=== PATIENT | female | born 2000 | race Caucasian/White ===

== ENCOUNTER 2020-08-17 17:53 | Inpatient (IN) ==
[2020-08-17 18:41] LABS: Appearance Urine Cloudy (Clear); Bacteria Urine Automated 1+ (Negative); Bilirubin Urine Negative (Negative); Blood Urine Negative (Negative); Color Urine Dark Yellow; Epithelial Cell Urine Auto >30 /lpf (0-5); Glucose Urine UA Negative (Negative); Ketones Urine Trace (Negative); Leukocyte Esterase Urine Trace (Negative); Nitrite Urine Negative (Negative); Protein Urine Negative (Negative); RBC Urine Automated 0-4 /hpf (0-4); Specific Gravity Urine 1.033 (1.000-1.030); Urobilinogen Urine Negative (Negative)
--- NOTE | 2020-08-17 18:44 | Emergency Department Note ---
History of Present Illness General Chief complaint: Mental Health Evaluation Stated complaint: SUICIDAL THOUGHTS/INTENTIONS-WEAKNESS Time Seen by Provider: 08/17/20 18:24 Source: patient Limitations: no limitations History of Present Illness Provider complaint: Mental health evaluation Onset (ago): unknown Maximum Pain Intensity: 4 This is a 20-year-old female who presents for mental health evaluation. Patient mitts to history of bipolar disorder and recent increased depression. Patient does have a psychiatrist that she sees routinely. Patient states 3 weeks ago she stopped all of her routine medications abruptly. She did not consult her psychiatrist for this nor did she do any tapering. She said she felt terrible, and then discussed with her psychiatrist her symptoms. She just restarted Lamictal at an initial dose 2 days ago. Patient states every spring around this time she develops increased depression and suicidal ideation. Patient states she does have a prior history of an attempt, and states that in high school she also used to self-harm with cutting. Patient has not done that recently. Patient has had suicidal ideation again and states she thinks about running off the road or running into traffic when she is driving or jumping in front of traffic. Patient denies any other recent illness or exposure to coronavirus. Pt seen during a time of high acuity and national emergency pandemic while wearing PPE. Home Medications Medication Instructions Recorded Confirmed Type lamotrigine 25 mg PO DAILY 08/17/20 08/17/20 History Allergies Allergy/AdvReac Type Severity Reaction Status Date / Time No Known Allergies Allergy Unverified 08/21/18 13:07 Past Med/Surg History Medical History Asthma Depression Social History Smoking Status: Current some day smoker Preferred Language: Nauruan Communication Ability: Effective Maxillofacial Pathology Required: No Beliefs That Will Affect Care: None Feels Safe at Home: Yes Assistive Devices: Contacts and Glasses Review of Systems See HPI for pertinent positives & negatives. and A total of 10 systems reviewed and were otherwise negative Physical Exam Vital Signs Vital Signs - 24 hr 08/17/20 17:56 08/17/20 22:19 Temperature 37.4 C 38.1 C H Temperature Source Temporal Artery Scan Oral Pulse Rate 95 H Pulse Rate [Left Finger] 67 Pulse Rhythm [Left Finger] Regular Pulse Strength [Left Finger] Normal Respiratory Rate 18 18 Respiratory Effort / Characteristics Non-Labored Respiratory Depth Normal Blood Pressure 116/74 Blood Pressure Mean 88 Pulse Oximetry 94 97 Oxygen Delivery Method Room Air Room Air Sepsis Recent Fever Within 48 Hours No Sepsis New/Unexplained Change in Mental Status N/A Sepsis Action Taken by Nursing No Action Required GENERAL: alert, well appearing, well nourished, no distress, non-toxic EYE EXAM: normal conjunctiva, PERRL and EOM's grossly intact OROPHARYNX: no exudate, no erythema, lips, buccal mucosa, and tongue normal and mucous membranes are moist NECK: supple, no nuchal rigidity, no adenopathy, non-tender LUNGS: Clear to auscultation. Normal chest wall mechanics, no w/r/r HEART: no murmurs, S1 normal and S2 normal ABDOMEN: abdomen soft, non-tender, normo-active bowel sounds, no masses, no rebound or guarding. BACK: Back is symmetrical on inspection and there is no deformity, no midline tenderness, no CVA tenderness. SKIN: no rashes and no bruising UPPER EXTREMITIES: upper extremities are grossly normal. FROM, nml pulses b/l. LOWER EXTREMITIES: No pitting edema. FROM, nml pulses b/l. NEURO EXAM: Normal sensorium, cranial nerves II-XII grossly intact, normal speech, no gross weakness of arms, no gross weakness of legs. Gross sensation intact. Course Course 2239: Patient accepted to [facility] Administered Medications Aripiprazole (Aripiprazole 5 Mg Tab) 2.5 mg PO [facility] Stop: 09/17/20 13:39 Last Admin: 08/19/20 08:52 Dose: 2.5 mg Documented by: [id number] Admin: 08/18/20 14:30 Dose: 2.5 mg Documented by: [id number] Lamotrigine (Lamotrigine 25 Mg Tab) [address] [facility] [place] Stop: 09/17/20 08:59 Last Admin: 08/19/20 08:52 Dose: 25 mg Documented by: [id number] Admin: 08/18/20 08:31 Dose: 25 mg Documented by: [id number] Medical Decision Making Differential Diagnosis Differential diagnoses considered include mood disorder, infection, hypoglycemia, electrolyte abnormalities, cardiac sources, intracerebral event, toxicologic, neurologic, as well as others. Medical Records Attestation: I reviewed the patient's medical records. Home Medications Current Medication List: was personally reviewed by me Laboratory Data Attestation: I reviewed the patient's lab results. Result diagrams: 08/17/20 19:14 08/17/20 19:14 Lab Results 08/17/20 08/17/20 08/17/20 Range/Units 18:19 18:19 19:14 WBC 7.19 (4.8-10.8) K/uL RBC 3.96 L (4.2-5.4) M/uL Hgb 12.4 (12.0-16.0) g/dL Hct 37.7 (37-47) % MCV 95.2 (80-100) fL MCH 31.3 (25-34) pg MCHC 32.9 (32-36) g/dL RDW Std Deviation 47.8 H (36.4-46.3) fL RDW Coeff of Elisha 13.7 (11.5-14.5) % Plt Count 214 (130-400) K/uL MPV 11.2 H (7.4-10.4) fL Immature Gran % (Auto) 0.1 % Neut % (Auto) 50.6 % Lymph % (Auto) 37.4 % [place] % (Auto) 7.6 % Eos % (Auto) 3.9 % Baso % (Auto) 0.4 % Neut # (Auto) 3.63 (1.4-6.5) K/uL Lymph # (Auto) 2.69 (1.2-3.4) K/uL [place] # (Auto) 0.55 (0.11-0.59) K/uL Eos # (Auto) 0.28 (0-0.5) K/uL Baso # (Auto) 0.03 (0-0.2) K/uL Immature Gran # (Auto) 0.01 (0.00-0.02) K/uL Sodium (136-145) mmol/L Potassium (3.5-5.1) mmol/L Chloride (98-107) mmol/L Carbon Dioxide (21-32) mmol/L Anion Gap (3-11) BUN (7-18) mg/dl Creatinine (0.6-1.2) mg/dl Est Cr Clr Drug Dosing ml/min Est GFR ( Amer) Est GFR (Non-Af Amer) BUN/Creatinine Ratio (10-20) Glucose (70-99) mg/dl Calcium (8.5-10.1) mg/dl Total Bilirubin (0.2-1) mg/dl AST (15-37) U/L ALT (12-78) U/L Alkaline Phosphatase (45-117) U/L Total Protein (6.4-8.2) gm/dl Albumin (3.4-5.0) gm/dl Globulin (2.5-4.0) gm/dl Albumin/Globulin Ratio (0.9-2) TSH (0.300-4.500) uIu/ml Urine Color Dark Yellow Urine Appearance Cloudy A (Clear) Urine pH 6.0 (4.5-7.5) Ur Specific [place] 1.033 H (1.000-1.030) Urine Protein Negative (Negative) Urine Glucose (UA) Negative (Negative) Urine Ketones Trace H (Negative) Urine Blood Negative (Negative) Urine Nitrite Negative (Negative) Urine Bilirubin Negative (Negative) Urine Urobilinogen Negative (Negative) Ur Leukocyte Esterase Trace H (Negative) Urine WBC (Auto) 10-30 H (0-5) /hpf Urine RBC (Auto) 0-4 (0-4) /hpf U Hyaline Cast (Auto) 0 (0-5) /lpf U Epithel Cells (Auto) >30 H (0-5) /lpf Urine Bacteria (Auto) 1+ H (Negative) Urine Crystals Calcium Oxalate A (None Prsent) Calcium Oxalate Crystal Present A (None Prsent) Salicylates (2.8-20) mg/dl Urine Opiates Screen Pos H (Neg) Ur Methadone, Qual Neg (Neg) Acetaminophen (10-30) ug/ml Urine Barbiturates Neg (Neg) Ur Phencyclidine (PCP) Neg (Neg) U Amphetamin/Meth Scrn Pos H (Neg) MDMA (Ecstasy) Screen Neg (Neg) U Benzodiazepines Scrn Neg (Neg) Ur Cocaine Metabolite Neg (Neg) U Marijuana (THC) Screen Pos H (Neg) Ethyl Alcohol mg/dL (0-3) mg/dl SARS-CoV-2, RNA, NAAT (NEGATIVE) 08/17/20 08/17/20 08/17/20 Range/Units 19:14 19:14 19:14 WBC (4.8-10.8) K/uL RBC (4.2-5.4) M/uL Hgb (12.0-16.0) g/dL Hct (37-47) % MCV (80-100) fL MCH (25-34) pg MCHC (32-36) g/dL RDW Std Deviation (36.4-46.3) fL RDW Coeff of Elisha (11.5-14.5) % Plt Count (130-400) K/uL MPV (7.4-10.4) fL Immature Gran % (Auto) % Neut % (Auto) % Lymph % (Auto) % [place] % (Auto) % Eos % (Auto) % Baso % (Auto) % Neut # (Auto) (1.4-6.5) K/uL Lymph # (Auto) (1.2-3.4) K/uL [place] # (Auto) (0.11-0.59) K/uL Eos # (Auto) (0-0.5) K/uL Baso # (Auto) (0-0.2) K/uL Immature Gran # (Auto) (0.00-0.02) K/uL Sodium 143 (136-145) mmol/L Potassium 3.6 (3.5-5.1) mmol/L Chloride 108 H (98-107) mmol/L Carbon Dioxide 28 (21-32) mmol/L Anion Gap 7.0 (3-11) BUN 14 (7-18) mg/dl Creatinine 0.88 (0.6-1.2) mg/dl Est Cr Clr Drug Dosing 91.7 ml/min Est GFR ( Amer) 108.1 Est GFR (Non-Af Amer) 93.3 BUN/Creatinine Ratio 16.3 (10-20) Glucose 83 (70-99) mg/dl Calcium 8.8 (8.5-10.1) mg/dl Total Bilirubin 0.5 (0.2-1) mg/dl AST 22 (15-37) U/L ALT 18 (12-78) U/L Alkaline Phosphatase 64 (45-117) U/L Total Protein 6.6 (6.4-8.2) gm/dl Albumin 3.6 (3.4-5.0) gm/dl Globulin 3.0 (2.5-4.0) gm/dl Albumin/Globulin Ratio 1.2 (0.9-2) TSH 0.869 (0.300-4.500) uIu/ml Urine Color Urine Appearance (Clear) Urine pH (4.5-7.5) Ur Specific [place] (1.000-1.030) Urine Protein (Negative) Urine Glucose (UA) (Negative) Urine Ketones (Negative) Urine Blood (Negative) Urine Nitrite (Negative) Urine Bilirubin (Negative) Urine Urobilinogen (Negative) Ur Leukocyte Esterase (Negative) Urine WBC (Auto) (0-5) /hpf Urine RBC (Auto) (0-4) /hpf U Hyaline Cast (Auto) (0-5) /lpf U Epithel Cells (Auto) (0-5) /lpf Urine Bacteria (Auto) (Negative) Urine Crystals (None Prsent) Calcium Oxalate Crystal (None Prsent) Salicylates < 1.7 L (2.8-20) mg/dl Urine Opiates Screen (Neg) Ur Methadone, Qual (Neg) Acetaminophen < 2 L (10-30) ug/ml Urine Barbiturates (Neg) Ur Phencyclidine (PCP) (Neg) U Amphetamin/Meth Scrn (Neg) MDMA (Ecstasy) Screen (Neg) U Benzodiazepines Scrn (Neg) Ur Cocaine Metabolite (Neg) U Marijuana (THC) Screen (Neg) Ethyl Alcohol mg/dL < 3.0 (0-3) mg/dl SARS-CoV-2, RNA, NAAT (NEGATIVE) 08/17/20 Range/Units 20:25 WBC (4.8-10.8) K/uL RBC (4.2-5.4) M/uL Hgb (12.0-16.0) g/dL Hct (37-47) % MCV (80-100) fL MCH (25-34) pg MCHC (32-36) g/dL RDW Std Deviation (36.4-46.3) fL RDW Coeff of Eilsha (11.5-14.5) % Plt Count (130-400) K/uL MPV (7.4-10.4) fL Immature Gran % (Auto) % Neut % (Auto) % Lymph % (Auto) % [place] % (Auto) % Eos % (Auto) % Baso % (Auto) % Neut # (Auto) (1.4-6.5) K/uL Lymph # (Auto) (1.2-3.4) K/uL [place] # (Auto) (0.11-0.59) K/uL Eos # (Auto) (0-0.5) K/uL Baso # (Auto) (0-0.2) K/uL Immature Gran # (Auto) (0.00-0.02) K/uL Sodium (136-145) mmol/L Potassium (3.5-5.1) mmol/L Chloride (98-107) mmol/L Carbon Dioxide (21-32) mmol/L Anion Gap (3-11) BUN (7-18) mg/dl Creatinine (0.6-1.2) mg/dl Est Cr Clr Drug Dosing ml/min Est GFR ( Amer) Est GFR (Non-Af Amer) BUN/Creatinine Ratio (10-20) Glucose (70-99) mg/dl Calcium (8.5-10.1) mg/dl Total Bilirubin (0.2-1) mg/dl AST (15-37) U/L ALT (12-78) U/L Alkaline Phosphatase (45-117) U/L Total Protein (6.4-8.2) gm/dl Albumin (3.4-5.0) gm/dl Globulin (2.5-4.0) gm/dl Albumin/Globulin Ratio (0.9-2) TSH (0.300-4.500) uIu/ml Urine Color Urine Appearance (Clear) Urine pH (4.5-7.5) Ur Specific [place] (1.000-1.030) Urine Protein (Negative) Urine Glucose (UA) (Negative) Urine Ketones (Negative) Urine Blood (Negative) Urine Nitrite (Negative) Urine Bilirubin (Negative) Urine Urobilinogen (Negative) Ur Leukocyte Esterase (Negative) Urine WBC (Auto) (0-5) /hpf Urine RBC (Auto) (0-4) /hpf U Hyaline Cast (Auto) (0-5) /lpf U Epithel Cells (Auto) (0-5) /lpf Urine Bacteria (Auto) (Negative) Urine Crystals (None Prsent) Calcium Oxalate Crystal (None Prsent) Salicylates (2.8-20) mg/dl Urine Opiates Screen (Neg) Ur Methadone, Qual (Neg) Acetaminophen (10-30) ug/ml Urine Barbiturates (Neg) Ur Phencyclidine (PCP) (Neg) U Amphetamin/Meth Scrn (Neg) MDMA (Ecstasy) Screen (Neg) U Benzodiazepines Scrn (Neg) Ur Cocaine Metabolite (Neg) U Marijuana (THC) Screen (Neg) Ethyl Alcohol mg/dL (0-3) mg/dl SARS-CoV-2, RNA, NAAT NEGATIVE (NEGATIVE) MDM Narrative This is a 20-year-old female brought in for mental health evaluation. Patient does have a history of mental health problems including bipolar disorder, as well as a history of substance abuse. Patient admitted to discontinuing all of her medications recently, and then after feeling worse followed up with her psychiatrist who helped her reinitiate one of the medications at low dose. Patient with recent increased symptoms and admits to suicidal ideation. Patient seen and evaluated and medically cleared by myself, and then evaluated by case management. Patient referred and was accepted to [facility] for additional inpatient mental health treatment. Patient voluntary at this time, verbalized understanding of all results and was in agreement with plan. Impression & Plan Bipolar disorder, Depression Discharge Plan Visit Data Chief Complaint: Mental Health Evaluation Stated Complaint: SUICIDAL THOUGHTS/INTENTIONS-WEAKNESS ED Provider: Tayler Sellers Discharge Problem: Bipolar disorder, Depression Patient Disposition: Admitted As Inpatient Discharge Instructions Interventions: ED Discharge Assessment Last Done: 08/17/20 22:49 Discharge Problem: Bipolar disorder Qualifiers: Active/Remission status: currently active Current bipolar episode type: depressed Current episode severity: moderate Qualified Code(s): F31.32 - Bipolar disorder, current episode depressed, moderate Depression Qualifiers: Depression Type: unspecified Qualified Code(s): F32.9 - Major depressive disorder, single episode, unspecified
[2020-08-17 19:02] LABS: Amphetamines+Metham, Urine Pos (Neg); Barbiturates, Urine Neg (Neg); Benzodiazepine, Urine Neg (Neg); Cocaine, Urine Neg (Neg); MDMA (Ecstacy), Urine Neg (Neg); Methadone, Urine Neg (Neg); Opiate, Urine Pos (Neg); Phencyclidine, Urine Neg (Neg)
[2020-08-17 19:20] LABS: Calcium Oxalate Crystals Urine Present (None Prsent); Cast Urine Automated 0 /lpf (0-5)
[2020-08-17 19:29] LABS: Basophils # (auto) 0.03 K/uL (0-0.2); Basophils % (auto) 0.4 %; Eosinophils # (auto) 0.28 K/uL (0-0.5); Eosinophils % (auto) 3.9 %; Hematocrit (blood only) 37.7 % (37-47); Hemoglobin 12.4 g/dL (12.0-16.0); Immature Granulocytes # (auto) 0.01 K/uL (0.00-0.02); Immature Granulocytes % (auto) 0.1 %; Lymphocytes # (auto) 2.69 K/uL (1.2-3.4); Lymphocytes % (auto) 37.4 %; Mean Corpuscular Hemoglobin 31.3 pg (25-34); Mean Corpuscular Hgb Conc 32.9 g/dL (32-36); Mean Corpuscular Volume 95.2 fL (80-100); Mean Platelet Volume 11.2 fL (7.4-10.4); Monocytes # (auto) 0.55 K/uL (0.11-0.59); Monocytes % (auto) 7.6 %; Neutrophils # (auto) 3.63 K/uL (1.4-6.5); Neutrophils % (auto) 50.6 %; Platelet Count 214 K/uL (130-400); RDW Coefficient of Variation 13.7 % (11.5-14.5); RDW Standard Deviation 47.8 fL (36.4-46.3); Red Blood Count 3.96 M/uL (4.2-5.4); White Blood Count 7.19 K/uL (4.8-10.8)
[2020-08-17 19:51] LABS: Albumin Level 3.6 gm/dl (3.4-5.0); BUN Creatinine Ratio 16.3 (10-20); Calcium 8.8 mg/dl (8.5-10.1); Creatinine Clr Calc Pharmacy 91.7 ml/min; Est GFR (African American) 108.1; Est GFR (Non-African American) 93.3; Potassium 3.6 mmol/L (3.5-5.1)
[2020-08-17 20:02] LABS: Acetaminophen < 2 ug/ml (10-30); Albumin Globulin Ratio 1.2 (0.9-2); Bilirubin,Total 0.5 mg/dl (0.2-1); Salicylate < 1.7 mg/dl (2.8-20); Thyroid Stimulating Hormone 0.869 uIu/ml (0.300-4.500); Total Protein 6.6 gm/dl (6.4-8.2)
[2020-08-17] MEDS ORDERED: hydrOXYzine HCl 25 MG TAB PO PRN ×4 (22:45→22:53)
[2020-08-17] MEDS ORDERED: ACETAMINOPHEN 325 MG TAB PO PRN ×2 (22:45→22:53)
[2020-08-17] MEDS ORDERED: MAGNESIUM HYDROXIDE SUSP 30 ML UDC PO PRN ×2 (22:45→22:53)
[2020-08-17] MEDS ORDERED: ALUMINUM/MAGNESIUM SUSP 30 ML UDC PO PRN ×2 (22:45→22:53)
[2020-08-17] MEDS ORDERED: SODIUM CHLORIDE 0.65% NA SOLN 45 ML (OCEAN) PRN ×2 (22:45→22:53)
[2020-08-17] MEDS ORDERED: BISMUTH SUBSALICYLATE LIQD 236 ML PO PRN ×2 (22:45→22:53)
[2020-08-18] MEDS: lamoTRIgine 25 MG TAB PO SCH (08:31)
--- NOTE | 2020-08-18 13:47 | History & Physical ---
Date of Service August 18, 2020 Impression / Recommendations Impression 20 yo female with a history of intermittent SI both while depressed and hypomanic restarting Lamictal but ongoing significant MJ use and binge drinking. (1) Bipolar II disorder with seasonal pattern: The patient was admitted to the [facility] ([facility]) on q15 min checks (behavioral with suicide precautions) for safety. The patient will participate in group, recreational, and milieu therapies and will be offered additional individual and family sessions as clinically appropriate. Risks/benefits/alternatives reviewed re: Abilify for treatment of depression and mood stabilization until therapeutic on Lamictal. She is well aware of risk of Zev's Miguel reaction with Lamictal. Discussion around Abilify included but was not limited to risks of metabolic abnormalities and TD. Fasting metabolic labs in am. (2) Substance abuse, binge pattern: patient is actively suicidal and not able to engage in meaningful recovery discussion at this time. I do believe likely mood driven use and likely to decrease with resuming mood stabilizing medication. she denies use of opiates, ?lamictal false positive--quantitative pending. (3) Attention deficit disorder of adult: reviewed that will not prescribe Adderall XR here as depression is focus of treatment. She does report dx was based on neuropsych testing and GINA for [facility] to obtain records. Risk Factors Assessment Do You Have Access To A Gun?: No Protective Factors Assessment Employed: No Psychiatric History Identifying Data BOLA BASS is a 20-year-old F, [employer] senior, has a history of inpatient stay 2018, and was admitted on 08/17/20 22:48 on a 201 voluntary commitment for SI with plan. Chief Complaint "I'm always suicidal, whether I'm low or high, I just wonder if it's all worth it". History of Present Illness Patient reports "i haven't been doing anything" including taking her medication. She is behind in classes and may have to withdraw. She has been using MJ and alcohol, "more than usual and not just when I'm having fun". She reports any suicidal thoughts are chronic, but more persistent for few days up to admission. Suicidal plan included wrecking her car or walking in front of a care. She had just seen outpatient provider on 08/15 to resume Lamictal but "I know that's not going to work for awhile". Bola reports existential angst about meaning of life in general and that "none of us are really supposed to be here when the world is such a terrible place." She realizes "I read too much and go to a dark place" referring to material for her psych and sociology degrees. Sleep and appetite "haven't been great" and "I can't focus" even with addition of Adderall XR in escalating doses to 15 mg "so I stopped it too." "July is just a bad month for me" and historically she was hospitalized at in July 2018. At that point she was a sophomore and experiencing low mood alternating with periods of not needing sleep, more reckless behavior. Bola states that "antidepressants have never helped". She worries she is becoming too dependent on friends as she has asked someone to stay with her "constantly" for past few weeks so "I wouldn't do anything." Past Psychiatric History Current Psychiatric Diagnosis: bipolar disorder Outpatient Services: [facility] (meds only) Previous Psych Admissions: 07/2018 [facility] Do You Have Access To A Gun?: No History of Previous Suicide Attempt: No Past Medication Trials: Zoloft, Wellbutrin, Adderall XR, Lamictal up to 200 mg (with benefit) Past Head Trauma/Neuro History History of Concussion/Seizure: No Allergies Allergy/AdvReac Type Severity Reaction Status Date / Time No Known Allergies Allergy Unverified 08/21/18 13:07 Home Medications Medication Instructions Recorded Confirmed Type lamotrigine 25 mg PO DAILY 08/17/20 08/17/20 History Family History Family History of: Bipolar (she believes but not clear formal/treated) Alcohol History Hx of Alcohol Use Over the Past 12 Months: Yes (3x/week, 5-6 drinks) AUDIT Total Score: 6 Smoking Use Have You Smoked or Used Tobacco Products in the Last 30 Days: Yes tobacco type: cigarettes and e-cigarettes Smoking Status: Current some day smoker Substance History Hx of Prescription Med Misuse Over the Past 12 Months: No Hx of Over the Counter Med Misuse Over the Past 12 Months: No Hx of Inhalent Misuse Over the Past 12 Months: No Hx of Organic Substance Use Over the Past 12 Months: Yes (frequent marijuana use) Hx of Illegal Substances/Street Drug Use Over Past 12 Months: No Problems as a Result of Past Substance Use: None Identified Personal History Living Arrangements: Apartment Born In: [place] Childhood: 1 bro, 1 sis Highest Grade Completed: Some College (currently senior but not graduating until next year) Employment Status: Student Marital Status: Single Number Of Children: 0 Beliefs That Will Affect Care: None Current Legal Problems: No Patient History Medical History Asthma Depression Social History Smoking Status: Current some day smoker Preferred Language: Turkish Communication Ability: Effective Administrator Required: No Beliefs That Will Affect Care: None Feels Safe at Home: Yes Assistive Devices: Contacts and Glasses Review of Systems Review of Systems: All systems reviewed & are unremarkable except as noted in HPI & below Physical Exam Psychiatric: Orientation: alert Apperance: appropriately dressed and appropriately groomed Eye Contact: + fair eye contact Motor Behavior: steady gait and station and no abnormal motor movements Speech: normal rate/rhythm/volume of speech Affect: + depressed affect Mood: + depressed mood Thought Process: linear/logical thought process Thought Content: reality based without delusions Suicidal Thoughts: denies suicidal plan (that should could carry out on unit); + reports suicidal thoughts Homicidal Thoughts: denies homicidal thoughts Hallucinations: no auditory hallucinations and no visual hallucinations Cognition: remote memory grossly intact and attention grossly intact Estimated Intelligence: consistent with education level Insight: + limited insight Judgement: + limited judgement Vital Signs (Past 24 Hours): Last Vital Signs Temp 36.7 C 08/18/20 06:00 Pulse 70 08/18/20 06:51 Resp 15 08/18/20 06:00 BP 105/72 08/18/20 06:51 Pulse Ox 97 08/17/20 23:15 Exam Statement: A physical exam was performed in the ED by Dr. Sellers for the purposes of medical clearance. I accept that physical as correct and adequate for the purposes of the inpatient physical exam. Results & Data ([facility]) Laboratory Results Laboratory Results - last 24 hr 08/17/20 08/17/20 08/17/20 18:19 18:19 18:19 WBC RBC Hgb Hct MCV MCH MCHC RDW Std Deviation RDW Coeff of Elisha Plt Count MPV Immature Gran % (Auto) Neut % (Auto) Lymph % (Auto) Mayes % (Auto) Eos % (Auto) Baso % (Auto) Neut # (Auto) Lymph # (Auto) Mayes # (Auto) Eos # (Auto) Baso # (Auto) Immature Gran # (Auto) Sodium Potassium Chloride Carbon Dioxide Anion Gap BUN Creatinine Est Cr Clr Drug Dosing Est GFR ( Amer) Est GFR (Non-Af Amer) BUN/Creatinine Ratio Glucose Calcium Total Bilirubin AST ALT Alkaline Phosphatase Total Protein Albumin Globulin Albumin/Globulin Ratio TSH Urine Color Dark Yellow Urine Appearance Cloudy A Urine pH 6.0 Ur Specific [place] 1.033 H Urine Protein Negative Urine Glucose (UA) Negative Urine Ketones Trace H Urine Blood Negative Urine Nitrite Negative Urine Bilirubin Negative Urine Urobilinogen Negative Ur Leukocyte Esterase Trace H Urine WBC (Auto) 10-30 H Urine RBC (Auto) 0-4 U Hyaline Cast (Auto) 0 U Epithel Cells (Auto) >30 H Urine Bacteria (Auto) 1+ H Urine Crystals Calcium Oxalate A Calcium Oxalate Crystal Present A POC Ur Test Salicylates Urine Opiates Screen Pos H U Codeine Confrm GC/MS Pending Ur Morphine (GC/MS) Pending Ur Hydrocodone (GC/MS) Pending Ur Norhydrocodone Pending Ur Noroxycodone Pending Urine Oxycodone (GC/MS) Pending U Oxymorphone GC/MS Pending Ur Methadone, Qual Neg Ur Hydromorphone (GC/MS) Pending Acetaminophen Urine Barbiturates Neg Ur Phencyclidine (PCP) Neg U Amphetamines Confirm Pending U Amphetamin/Meth Scrn Pos H U Methamphetamin Confrm Pending MDMA (Ecstasy) Screen Neg U Benzodiazepines Scrn Neg Ur Cocaine Metabolite Neg U Marijuana (THC) Screen Pos H U Marijuana THC Carboxy Pending Drug Screen Comment Pending Ethyl Alcohol mg/dL SARS-CoV-2, RNA, NAAT 08/17/20 08/17/20 08/17/20 19:14 19:14 19:14 WBC 7.19 RBC 3.96 L Hgb 12.4 Hct 37.7 MCV 95.2 MCH 31.3 MCHC 32.9 RDW Std Deviation 47.8 H RDW Coeff of Elisha 13.7 Plt Count 214 MPV 11.2 H Immature Gran % (Auto) 0.1 Neut % (Auto) 50.6 Lymph % (Auto) 37.4 Mayes % (Auto) 7.6 Eos % (Auto) 3.9 Baso % (Auto) 0.4 Neut # (Auto) 3.63 Lymph # (Auto) 2.69 Mayes # (Auto) 0.55 Eos # (Auto) 0.28 Baso # (Auto) 0.03 Immature Gran # (Auto) 0.01 Sodium 143 Potassium 3.6 Chloride 108 H Carbon Dioxide 28 Anion Gap 7.0 BUN 14 Creatinine 0.88 Est Cr Clr Drug Dosing 91.7 Est GFR ( Amer) 108.1 Est GFR (Non-Af Amer) 93.3 BUN/Creatinine Ratio 16.3 Glucose 83 Calcium 8.8 Total Bilirubin 0.5 AST 22 ALT 18 Alkaline Phosphatase 64 Total Protein 6.6 Albumin 3.6 Globulin 3.0 Albumin/Globulin Ratio 1.2 TSH 0.869 Urine Color Urine Appearance Urine pH Ur Specific [place] Urine Protein Urine Glucose (UA) Urine Ketones Urine Blood Urine Nitrite Urine Bilirubin Urine Urobilinogen Ur Leukocyte Esterase Urine WBC (Auto) Urine RBC (Auto) U Hyaline Cast (Auto) U Epithel Cells (Auto) Urine Bacteria (Auto) Urine Crystals Calcium Oxalate Crystal POC Ur Test Salicylates < 1.7 L Urine Opiates Screen U Codeine Confrm GC/MS Ur Morphine (GC/MS) Ur Hydrocodone (GC/MS) Ur Norhydrocodone Ur Noroxycodone Urine Oxycodone (GC/MS) U Oxymorphone GC/MS Ur Methadone, Qual Ur Hydromorphone (GC/MS) Acetaminophen < 2 L Urine Barbiturates Ur Phencyclidine (PCP) U Amphetamines Confirm U Amphetamin/Meth Scrn U Methamphetamin Confrm MDMA (Ecstasy) Screen U Benzodiazepines Scrn Ur Cocaine Metabolite U Marijuana (THC) Screen U Marijuana THC Carboxy Drug Screen Comment Ethyl Alcohol mg/dL SARS-CoV-2, RNA, NAAT 08/17/20 08/17/20 08/17/20 19:14 20:25 Unknown WBC RBC Hgb Hct MCV MCH MCHC RDW Std Deviation RDW Coeff of Elisha Plt Count MPV Immature Gran % (Auto) Neut % (Auto) Lymph % (Auto) Mayes % (Auto) Eos % (Auto) Baso % (Auto) Neut # (Auto) Lymph # (Auto) Mayes # (Auto) Eos # (Auto) Baso # (Auto) Immature Gran # (Auto) Sodium Potassium Chloride Carbon Dioxide Anion Gap BUN Creatinine Est Cr Clr Drug Dosing Est GFR ( Amer) Est GFR (Non-Af Amer) BUN/Creatinine Ratio Glucose Calcium Total Bilirubin AST ALT Alkaline Phosphatase Total Protein Albumin Globulin Albumin/Globulin Ratio TSH Urine Color Urine Appearance Urine pH Ur Specific [place] Urine Protein Urine Glucose (UA) Urine Ketones Urine Blood Urine Nitrite Urine Bilirubin Urine Urobilinogen Ur Leukocyte Esterase Urine WBC (Auto) Urine RBC (Auto) U Hyaline Cast (Auto) U Epithel Cells (Auto) Urine Bacteria (Auto) Urine Crystals Calcium Oxalate Crystal POC Ur Test NEG Salicylates Urine Opiates Screen U Codeine Confrm GC/MS Ur Morphine (GC/MS) Ur Hydrocodone (GC/MS) Ur Norhydrocodone Ur Noroxycodone Urine Oxycodone (GC/MS) U Oxymorphone GC/MS Ur Methadone, Qual Ur Hydromorphone (GC/MS) Acetaminophen Urine Barbiturates Ur Phencyclidine (PCP) U Amphetamines Confirm U Amphetamin/Meth Scrn U Methamphetamin Confrm MDMA (Ecstasy) Screen U Benzodiazepines Scrn Ur Cocaine Metabolite U Marijuana (THC) Screen U Marijuana THC Carboxy Drug Screen Comment Ethyl Alcohol mg/dL < 3.0 SARS-CoV-2, RNA, NAAT NEGATIVE Current Inpatient Medications Current Inpatient Medications: Current Inpatient Medications Acetaminophen (Acetaminophen 325 Mg Tab) 650 mg PO Q4H PRN PRN Reason: Headache or Minor Fever Stop: 09/16/20 22:44 Al Hydrox/Mg Hydrox/Simethicone (Aluminum/Magnesium Susp 30 Ml Udc) 30 ml PO Q4H PRN PRN Reason: GI Upset Stop: 09/16/20 22:44 Aripiprazole (Aripiprazole 5 Mg Tab) 2.5 mg PO QAM LOLI Stop: 09/17/20 13:39 Bismuth Subsalicylate (Bismuth Subsalicylate Liqd 236 Ml) 15 ml PO PRN PRN PRN Reason: Loose Stool Stop: 09/16/20 22:44 Hydroxyzine HCl (Hydroxyzine Hcl 25 Mg Tab) 50 mg PO HSZ PRN PRN Reason: Insomnia Stop: 09/16/20 22:44 Hydroxyzine HCl (Hydroxyzine Hcl 25 Mg Tab) 25 mg PO Q4H PRN PRN Reason: Anxiety Stop: 09/16/20 22:44 Lamotrigine (Lamotrigine 25 Mg Tab) 25 mg PO QAM LOLI Stop: 09/17/20 08:59 Last Admin: 08/18/20 08:31 Dose: 25 mg Documented by: Magnesium Hydroxide (Magnesium Hydroxide Susp 30 Ml Udc) 30 ml PO DAILY PRN PRN Reason: Constipation Stop: 09/16/20 22:44 Sodium Chloride (Sodium Chloride 0.65% Na Soln 45 Ml ([place])) 1 - 2 sprays NA PRN PRN PRN Reason: Nasal Dryness/Congestion Stop: 09/16/20 22:44
[2020-08-18] MEDS: ARIPiprazole 5 MG TAB PO SCH (14:30)
[2020-08-19 08:48] LABS: Glucose Fasting 92 mg/dl (70-99)
[2020-08-19] MEDS: ARIPiprazole 5 MG TAB PO SCH (08:52)
[2020-08-19] MEDS: lamoTRIgine 25 MG TAB PO SCH (08:52)
[2020-08-19 08:54] LABS: Chol HDL Ratio 3; Cholesterol 134 mg/dl (0-200); HDL Cholesterol 49 mg/dl; LDL Cholesterol Calculated 68 mg/dl; Triglycerides 87 mg/dl (0-150); VLDL Cholesterol 17 mg/dl
--- NOTE | 2020-08-19 09:55 | Psychiatric Progress Note ---
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 Decompensated after stopping all her medications abruptly several weeks ago, significant MJ use and binge drinking. Inpatient treatment remains medically necessary due to the severity of mood symptoms and risk for suicide if discharged. (1) Bipolar II disorder with seasonal pattern: 08/18 - The patient was admitted to the [facility] ([facility] health [facility]) on q15 min checks (behavioral with suicide precautions) for safety. The patient will participate in group, recreational, and milieu therapies and will be offered additional individual and family sessions as clinically appropriate. Risks/benefits/alternatives reviewed re: Abilify for treatment of depression and mood stabilization until therapeutic on Lamictal. She is well aware of risk of Zev's Miguel reaction with Lamictal. Discussion around Abilify included but was not limited to risks of metabolic abnormalities and TD. Fasting metabolic labs in am. 08/19 -continue lamotrigine titration (25 mg daily started 08/15, so can increase to 50 mg daily on 08/28/2020). Continue aripiprazole 2.5 mg daily. Reviewed fasting lab results with patient, all values within normal limits. -Reviewed outpatient records, and discussed case with her outpatient PA to coordinate care. -Referred to [facility] for dual diagnosis therapy. (2) Substance abuse, binge pattern: 08/18 - patient is actively suicidal and not able to engage in meaningful recovery discussion at this time. I do believe likely mood driven use and likely to decrease with resuming mood stabilizing medication. she denies use of opiates, ?lamictal false positive--quantitative pending. 08/19 - Follow up on UDS confirmatory results, still pending. (3) Attention deficit disorder of adult: reviewed that will not prescribe Adderall XR here as depression is focus of treatment. She does report dx was based on neuropsych testing and GINA for [facility] to obtain records. 08/19 - Reviewed outpatient records which indicate Adderall was discontinued last week as patient reported it wasn't helping and she'd stopped it. Risk Factors Assessment Male: No : Yes Do You Have Access To A Gun?: No Health Problems: No Mental Health Diagnoses: Yes Substance Use Disorders: Yes Previous Attempt: No Family History of Suicide: No Previous Psychiatric Hospitalization: Yes Hopelessness: Yes Smoker: No Protective Factors Assessment Amish Beliefs: No : No Responsible for Young Children: No Employed: No Stable Relationships: Yes Good Rapport with Provider: Yes Interval History Chief Complaint "Pretty good, settling in okay". Review of Systems Sleep Information Total Hours of Sleep: 6.5 Meal Information Percent Meal Consumed - Breakfast: 75 Percent Meal Consumed - Lunch: 75 Percent Meal Consumed - Dinner: 100 Subjective Subjective Patient was seen & assessed and interval progress reviewed with nursing and social work. On my assessment, she reports she isn't sure how her mood is, feels confused about it, "happy and fine, but also hopeless" and depressed. States she feels happy on the surface, "but in the back of my mind, thinking about everything that's bad with the world." She denies anhedonia, is able to "be with people and have a good time, but as soon I'm not with people, I'm not happy." When alone, thoughts focus on "the world is really messed up, the way that like society is handled what has been given to us has ruined us." Exacerbated by [employer] a lot of sociology classes. Worries about money, her own financial situation and also the "concept of money" and the focus on wealth and consumerism. Suicidal thoughts are ongoing, "come in waves," at times feels overwhelmed and hopeless, this morning was thinking treatment "isn't helping" because nothing will have changed when she leaves. Feels safe here, but not outside. Although enjoys her classes (major psychology, minor sociology), they are intense at times. She is not sure what she wants to do for her career, hopes to take some time to travel. She is hoping not to be in the hospital too long, noting she is anxious about missing school. She is not sure if she wants to do a meeting with her friends, she does not want them to feel responsible for her mental health. Spent some time discussing the family meeting and ways that her friends can best support her in recovery. She is tolerating medications well, denies any side effects. Records from outpatient PA at [facility] reviewed: Patient last seen 08/13/2020, at which time she reported stopping all of her medications 2 weeks ago, for no particular reason, "I just got into a funk being lazy and not taking them." She had been prescribed lamotrigine 150 mg daily, bupropion SR 150 mg every morning, and Adderall XR 15 mg every morning. She went a few days without sleep, mood was elevated, energy increased, and increased goal-directed activity (organizing her room). Then mood worsened, with increased irritability, throwing things in her room, and she was struggling to complete schoolwork. She reported daily, passive suicidal thoughts. She thought she had taken too many classes, and had dropped 1-2 classes. Adderall and with bupropion were discontinued, and lamotrigine 25 mg daily was resumed. Therapy was recommended her diagnoses are bipolar disorder type II, generalized anxiety disorder, binge eating disorder, and ADHD inattentive type. Discussed case with Adeline at [facility]: pattern of stopping medications abruptly, then contacting her to resume them when feels worse. Reviewed presenting symptoms, UDS results, medication adjustments,, and plan to refer to [facility] for therapy. Physical Exam Psychiatric Orientation: alert and cooperative Apperance: appropriately dressed, appropriately groomed and appeared stated age Well-nourished well-developed white female appearing her stated age. Dressed in pajama bottoms, sweatshirt, and brightly patterned socks. Shoulderlength, dyed black hair, black framed glasses, nose ring. Seated in no acute distress, with feet tucked under her on the chair. Eye Contact: + fair eye contact Motor Behavior: steady gait and station and no abnormal motor movements Soft speech, slightly slowed rate. Affect: + depressed affect and + constricted affect Mood: + depressed mood Thought Process: goal directed thought process Thought Content: reality based without delusions Focused on negative thoughts Suicidal Thoughts: + reports suicidal thoughts Homicidal Thoughts: denies homicidal thoughts Hallucinations: no auditory hallucinations and no visual hallucinations Cognition: recent memory grossly intact, attention grossly intact and language grossly intact Estimated Intelligence: consistent with education level Insight: + fair insight Judgement: + fair judgement Vital Signs (Past 24 Hours) Last Vital Signs Temp 36.8 C 08/19/20 06:00 Pulse 75 08/19/20 06:51 Resp 18 08/19/20 06:00 BP 109/73 08/19/20 06:51 Pulse Ox 97 08/17/20 23:15 Results & Data ([facility]) Laboratory Results Laboratory Results - last 24 hr 08/19/20 08:06 Fasting Glucose 92 Triglycerides 87 Cholesterol 134 LDL Cholesterol, Calc 68 VLDL Cholesterol, Calc 17 HDL Cholesterol 49 Cholesterol/HDL Ratio 3 Current Inpatient Medications Current Inpatient Medications: Current Inpatient Medications Acetaminophen (Acetaminophen 325 Mg Tab) 650 mg PO Q4H PRN PRN Reason: Headache or Minor Fever Stop: 09/16/20 22:44 Al Hydrox/Mg Hydrox/Simethicone (Aluminum/Magnesium Susp 30 Ml Udc) 30 ml PO Q4H PRN PRN Reason: GI Upset Stop: 09/16/20 22:44 Aripiprazole (Aripiprazole 5 Mg Tab) 2.5 mg PO QAM LOLI Stop: 09/17/20 13:39 Last Admin: 08/19/20 08:52 Dose: 2.5 mg Documented by: Bismuth Subsalicylate (Bismuth Subsalicylate Liqd 236 Ml) 15 ml PO PRN PRN PRN Reason: Loose Stool Stop: 09/16/20 22:44 Hydroxyzine HCl (Hydroxyzine Hcl 25 Mg Tab) 50 mg PO HSZ PRN PRN Reason: Insomnia Stop: 09/16/20 22:44 Hydroxyzine HCl (Hydroxyzine Hcl 25 Mg Tab) 25 mg PO Q4H PRN PRN Reason: Anxiety Stop: 09/16/20 22:44 Lamotrigine (Lamotrigine 25 Mg Tab) 25 mg PO QAM LOLI Stop: 09/17/20 08:59 Last Admin: 08/19/20 08:52 Dose: 25 mg Documented by: Magnesium Hydroxide (Magnesium Hydroxide Susp 30 Ml Udc) 30 ml PO DAILY PRN PRN Reason: Constipation Stop: 09/16/20 22:44 Sodium Chloride (Sodium Chloride 0.65% Na Soln 45 Ml ([place])) 1 - 2 sprays NA PRN PRN PRN Reason: Nasal Dryness/Congestion Stop: 09/16/20 22:44 Mental Health & Subst Abuse Tx Psychiatrist Name of Psychiatrist: Jasen Whatley Psychiatrist's Date of Appointment with Psychiatrist: 09/02/20 Time of Appointment with Psychiatrist: 1:20 p.m. Psychiatric Appointment Comment: [facility], [place] Attendant Sales Name of Attendant Sales: [employer] Phone Number for Attendant Sales: [phone] Post Discharge Appointments Primary Care Physician Name Of Family Doctor: RAJ[facility] Primary [facility] Time of Appointment with PCP: Follow up as needed Provider Appointment Comment: [facility]
[2020-08-20 06:32] LABS: Amphetamine Urine, Confirm 1870 ng/mL (<250); Codeine Urine NEGATIVE ng/mL (<50); Hydrocodone Urine NEGATIVE ng/mL (<50); Hydromor Urine NEGATIVE ng/mL (<50); Marijuana Quant, GCMS Urine 2910 ng/mL (<5); Methamphetamine, Ur Confirm NEGATIVE ng/mL (<250); Morphine Urine 665 ng/mL (<50); Norhydrocodone Conf Ur NEGATIVE ng/mL (<50); Noroxycodone Urine NEGATIVE ng/mL (<50); Oxycodone Urine NEGATIVE ng/mL (<50); Oxymorph Urine NEGATIVE ng/mL (<50)
[2020-08-20] MEDS: ARIPiprazole 5 MG TAB PO SCH (10:07)
[2020-08-20] MEDS: lamoTRIgine 25 MG TAB PO SCH (10:08)
--- NOTE | 2020-08-20 13:10 | Psychiatric Progress Note ---
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 Decompensated after stopping all her medications abruptly several weeks ago, significant MJ use and binge drinking. Inpatient treatment remains medically necessary due to the severity of mood symptoms and risk for suicide if discharged. (1) Bipolar II disorder with seasonal pattern: 08/18 - The patient was admitted to the [facility] on q15 min checks (behavioral with suicide precautions) for safety. The patient will participate in group, recreational, and milieu therapies and will be offered additional individual and family sessions as clinically appropriate. Risks/benefits/alternatives reviewed re: Abilify for treatment of depression and mood stabilization until therapeutic on Lamictal. She is well aware of risk of Zev's Miguel reaction with Lamictal. Discussion around Abilify included but was not limited to risks of metabolic abnormalities and TD. Fasting metabolic labs in am. 08/19 -continue lamotrigine titration (25 mg daily started 08/15, so can increase to 50 mg daily on 08/28/2020). Continue aripiprazole 2.5 mg daily. Reviewed fasting lab results with patient, all values within normal limits. -Reviewed outpatient records, and discussed case with her outpatient PA to coordinate care. -Referred to [place] for dual diagnosis therapy. 08/20 - Continue current medication regimen with standard titration of lamotrigine as outlined above. - Reports some improvement in mood overall, but admits she is worried that "nothing will have changed" - Pt admits that active SI is improved, but she still feels as though there is "no point" - still referencing having poor motivation as she does not imagine be ing around to live much more of her life. Pt admits she does not feel she would be ready for discharge for a few more days, as she does not feel she could contract for safety based on how she is currently feeling. - Discussed behavioral activation, encouraging her to work on adjustments to her schedule/routine that might help with motivation, and other similar topics. (2) Substance abuse, binge pattern: 08/18 - patient is actively suicidal and not able to engage in meaningful recovery discussion at this time. I do believe likely mood driven use and likely to decrease with resuming mood stabilizing medication. she denies use of opiates, ?lamictal false positive--quantitative pending. 08/19 - Follow up on UDS confirmatory results, still pending. 08/20 - Opiate confirmatory screening positive for morphine - patient remains adamant that she did not knowingly consume heroin, morphine, codeine, etc. - Reviewed the significant risks associated with substance use, as well as negative impact it is likely having on her mood and concentration. - [facility] for dual diagnosis therapy as mentioned above (3) Attention deficit disorder of adult: reviewed that will not prescribe Adderall XR here as depression is focus of treatment. She does report dx was based on neuropsych testing and [facility]INA for [place] to obtain records. 08/19 - Reviewed outpatient records which indicate Adderall was discontinued last week as patient reported it wasn't helping and she'd stopped it. 08/20 - Reviewed with patient that recommendation from outpatient provider had been for discontinuation of Adderall - informed this will be our discharge recommendation as well. Risk Factors Assessment Male: No : Yes Do You Have Access To A Gun?: No Health Problems: No Mental Health Diagnoses: Yes Substance Use Disorders: Yes Previous Attempt: No Family History of Suicide: No Previous Psychiatric Hospitalization: Yes Hopelessness: Yes Smoker: No Protective Factors Assessment Denominational Beliefs: No : No Responsible for Young Children: No Employed: No Stable Relationships: Yes Good Rapport with Provider: Yes Interval History Identifying Information BOLA BASS is a 20-year-old , [employer] senior, has a history of inpatient stay 2018, and was admitted on 08/17/20 22:48 on a 201 voluntary commitment for SI with plan. Chief Complaint "Um, pretty good." Review of Systems Notes Constitutional: denied Cardiovascular: denied Respiratory: denied Gastrointestinal: denied Neurological: denied Psychiatric: denies symptoms other than stated above Total of at least 10 systems reviewed, pertinent positives as above and in HPI. Sleep Information Total Hours of Sleep: 6.5 Sleep Comments: pt on q-15 minute checks Meal Information Percent Meal Consumed - Breakfast: 50 Percent Meal Consumed - Lunch: 25 Percent Meal Consumed - Dinner: 75 Subjective Subjective Patient was seen & assessed and interval progress reviewed with treatment team. Staff report the patient has been doing well with her peers. She walks laps frequently and rated her mood a 7/10 and "accomplished" last evening, after reaching her goal of walking so many laps in a day. Pt reported to staff that her suicidality was somewhat improved but not resolved. Pt was seen today to assess progress since admission. Pt states she is feeling "pretty good" today. She admits to feeling "more motivated" and states her negative thinking is "definitely better, not as many thoughts to hurt myself." Pt does admit, however, that she is still experiencing passive thoughts of "there's still no point." Pt admits that she is worried that if she were to be discharged her poor motivation would quickly return. She states "I think I get stuck on not doing things that I don't want to do. I'm just not motivated for classes and things." When asked why she feels this is the case, the patient stated "I just feel like I don't plan on being around much longer anyway, so what's the point." Pt did clarify that she is implying suicide when she states this. Although she does not have any current active SI, she admits that she does not feel she would be safe to return home with the way she is currently feeling. We discussed her frustrations with her majors and poor academic performance. Pt states her dream would be to travel; however, she also states she is not motivated to work jobs that would allow her to be able to afford this. We discussed the idea of "nothing changes if nothing changes" and motivation interviewing was used to explore the areas of the patient's life that she is genuinely interested in working on. Pt admits she at least wishes to finish her undergraduate degree, and then plans to move to [place] for a period of time. She admits she is not certain about grad school, and we discussed that not everyone ultimately pursues careers related to their degrees. She did honestly admit that she is not motivated to completely eliminate the use of marijuana and alcohol, but does feel it would be appropriate to limit her use to the weekends. Pt was updated about her UDS being positive for morphine specifically, and patient remains adamant that she did not knowingly use any substance aside from marijuana - but did seem genuinely concerned about this result and the potential that her marijuana could have been laced with other substances. Pt is still considering who she thinks may be helpful to include in a support meeting. She denied other needs or concerns today. Physical Exam Psychiatric Orientation: alert, oriented x 3 and cooperative Apperance: appropriately dressed, + disheveled (appearing somewhat unkempt, oversized clothing) and appeared stated age Eye Contact: good eye contact Motor Behavior: steady gait and station and no abnormal motor movements Speech: normal rate/rhythm/volume of speech Affect: + depressed affect, + anxious affect and + tearful affect Mood: no depressed mood ("pretty good") Thought Process: goal directed thought process Thought Content: + cognitive distortions, + hopelessness and + self deprecation Suicidal Thoughts: + reports suicidal thoughts denies active SI, but admits she still feels there is "no point" - pt continues to report feeling as though she doesn't need to be motivated to do things as she does not picture herself being around to live much more of her life Homicidal Thoughts: denies homicidal thoughts Hallucinations: no auditory hallucinations and no visual hallucinations Cognition: attention grossly intact and language grossly intact Estimated Intelligence: consistent with education level Insight: + fair insight Judgement: + fair judgement Vital Signs (Past 24 Hours) Last Vital Signs Temp 36.4 C L 08/20/20 06:47 Pulse 74 08/20/20 06:48 Resp 16 08/20/20 06:47 BP 103/71 08/20/20 06:48 Pulse Ox 97 08/17/20 23:15 Results & Data ([facility]) Laboratory Results Laboratory Results - last 24 hr 08/17/20 18:19 U Codeine Confrm GC/MS NEGATIVE Ur Morphine (GC/MS) 665 H Ur Hydrocodone (GC/MS) NEGATIVE Ur Norhydrocodone NEGATIVE Ur Noroxycodone NEGATIVE Urine Oxycodone (GC/MS) NEGATIVE U Oxymorphone GC/MS NEGATIVE Ur Hydromorphone (GC/MS) NEGATIVE U Amphetamines Confirm 1870 H U Methamphetamin Confrm NEGATIVE U Marijuana THC Carboxy 2910 H Drug Screen Comment SEE NOTE Current Inpatient Medications Current Inpatient Medications: Current Inpatient Medications Acetaminophen (Acetaminophen 325 Mg Tab) 650 mg PO Q4H PRN PRN Reason: Headache or Minor Fever Stop: 09/16/20 22:44 Al Hydrox/Mg Hydrox/Simethicone (Aluminum/Magnesium Susp 30 Ml Udc) 30 ml PO Q4H PRN PRN Reason: GI Upset Stop: 09/16/20 22:44 Aripiprazole (Aripiprazole 5 Mg Tab) 2.5 mg PO QAM LOLI Stop: 09/17/20 13:39 Last Admin: 08/20/20 10:07 Dose: 2.5 mg Documented by: Bismuth Subsalicylate (Bismuth Subsalicylate Liqd 236 Ml) 15 ml PO PRN PRN PRN Reason: Loose Stool Stop: 09/16/20 22:44 Hydroxyzine HCl (Hydroxyzine Hcl 25 Mg Tab) 50 mg PO HSZ PRN PRN Reason: Insomnia Stop: 09/16/20 22:44 Hydroxyzine HCl (Hydroxyzine Hcl 25 Mg Tab) 25 mg PO Q4H PRN PRN Reason: Anxiety Stop: 09/16/20 22:44 Lamotrigine (Lamotrigine 25 Mg Tab) 25 mg PO QAM LOLI Stop: 09/17/20 08:59 Last Admin: 08/20/20 10:08 Dose: 25 mg Documented by: Magnesium Hydroxide (Magnesium Hydroxide Susp 30 Ml Udc) 30 ml PO DAILY PRN PRN Reason: Constipation Stop: 09/16/20 22:44 Sodium Chloride (Sodium Chloride 0.65% Na Soln 45 Ml ([place])) 1 - 2 sprays NA PRN PRN PRN Reason: Nasal Dryness/Congestion Stop: 09/16/20 22:44 Mental Health & Subst Abuse Tx Psychiatrist Name of Psychiatrist: Jasen hWatley Psychiatrist's Date of Appointment with Psychiatrist: 09/02/20 Time of Appointment with Psychiatrist: 1:20 p.m. Psychiatric Appointment Comment: [id number] [facility] Therapist Name of Therapist: [facility] Therapist's Date of Therapist Appointment: 08/26/20 Time of Therapist Appointment: 9:00 a.m. Therapy Appointment Comment: Telehealth Certified Personal Trainer Name of Certified Personal Trainer: Student Care and Advocacy - Carmen Phone Number for Certified Personal Trainer: [phone] Date of Appointment with Certified Personal Trainer: 08/22/20 Time of Appointment with Certified Personal Trainer: 1:30 p.m. Case Management Appointment Comment: Carmen will call you Post Discharge Appointments Primary Care Physician Name Of Family Doctor: [facility] Primary Care Time of Appointment with PCP: Follow up as needed Provider Appointment Comment: [facility] Contact Information Discharge Discharge Address: [place] [address]
[2020-08-21] MEDS: ARIPiprazole 5 MG TAB PO SCH (08:23)
[2020-08-21] MEDS: lamoTRIgine 25 MG TAB PO SCH (08:24)
--- NOTE | 2020-08-21 13:16 | Psychiatric Progress Note ---
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 Decompensated after stopping all her medications abruptly several weeks ago, significant MJ use and binge drinking. Inpatient treatment remains medically necessary due to the severity of mood symptoms and risk for suicide if discharged. (1) Bipolar II disorder with seasonal pattern: 08/18 - The patient was admitted to the [facility]) on q15 min checks (behavioral with suicide precautions) for safety. The patient will participate in group, recreational, and milieu therapies and will be offered additional individual and family sessions as clinically appropriate. Risks/benefits/alternatives reviewed re: Abilify for treatment of depression and mood stabilization until therapeutic on Lamictal. She is well aware of risk of Zev's Miguel reaction with Lamictal. Discussion around Abilify included but was not limited to risks of metabolic abnormalities and TD. Fasting metabolic labs in am. 08/19 -continue lamotrigine titration (25 mg daily started 08/15, so can increase to 50 mg daily on 08/28/2020). Continue aripiprazole 2.5 mg daily. Reviewed fasting lab results with patient, all values within normal limits. -Reviewed outpatient records, and discussed case with her outpatient PA to coordinate care. -Referred to [place] for dual diagnosis therapy. 08/20 - Continue current medication regimen with standard titration of lamotrigine as outlined above. - Reports some improvement in mood overall, but admits she is worried that "nothing will have changed" - Pt admits that active SI is improved, but she still feels as though there is "no point" - still referencing having poor motivation as she does not imagine be ing around to live much more of her life. Pt admits she does not feel she would be ready for discharge for a few more days, as she does not feel she could contract for safety based on how she is currently feeling. - Discussed behavioral activation, encouraging her to work on adjustments to her schedule/routine that might help with motivation, and other similar topics. 08/21 - Continue current treatment plan as above - Pt seeing some positive changes with regard to motivation. - Support meeting tomorrow with friend, whom the patient views as a positive influence with regard to addressing mental health and substance abuse concerns. - She continues to have some SI, but states it is not as severe as when she initially presented. (2) Substance abuse, binge pattern: 08/18 - patient is actively suicidal and not able to engage in meaningful recovery discussion at this time. I do believe likely mood driven use and likely to decrease with resuming mood stabilizing medication. she denies use of opiates, ?lamictal false positive--quantitative pending. 08/19 - Follow up on UDS confirmatory results, still pending. 08/20 - Opiate confirmatory screening positive for morphine - patient remains adamant that she did not knowingly consume heroin, morphine, codeine, etc. - Reviewed the significant risks associated with substance use, as well as neg ative impact it is likely having on her mood and concentration. - [facility] for dual diagnosis therapy as mentioned above (3) Attention deficit disorder of adult: reviewed that will not prescribe Adderall XR here as depression is focus of treatment. She does report dx was based on neuropsych testing and [facility] for [facility] to obtain records. 08/19 - Reviewed outpatient records which indicate Adderall was discontinued last week as patient reported it wasn't helping and she'd stopped it. 08/20 - Reviewed with patient that recommendation from outpatient provider had been for discontinuation of Adderall - informed this will be our discharge recommendation as well. Risk Factors Assessment Male: No : Yes Do You Have Access To A Gun?: No Health Problems: No Mental Health Diagnoses: Yes Substance Use Disorders: Yes Previous Attempt: No Family History of Suicide: No Previous Psychiatric Hospitalization: Yes Hopelessness: Yes Smoker: No Protective Factors Assessment Alevism Beliefs: No : No Responsible for Young Children: No Employed: No Stable Relationships: Yes Good Rapport with Provider: Yes Interval History Identifying Information BOLA BASS is a 20-year-old , [facility], has a history of inpatient stay 2019, and was admitted on 08/17/20 22:48 on a 201 voluntary commitment for SI with plan. Chief Complaint "I don't know...this morning I had a breakdown, sort of." Review of Systems Notes Constitutional: denied Cardiovascular: denied Respiratory: denied Gastrointestinal: denied Neurological: denied Psychiatric: denies symptoms other than stated above Total of at least 10 systems reviewed, pertinent positives as above and in HPI. Sleep Information Total Hours of Sleep: 6.75 Sleep Comments: pt on q-15 minute checks Meal Information Percent Meal Consumed - Breakfast: 70 Percent Meal Consumed - Lunch: 40 Percent Meal Consumed - Dinner: 75 Subjective Subjective Patient was seen & assessed and interval progress reviewed with nursing and social work. Staff report the patient has been participating in groups. She indicates chronic SI, but did feel that yesterday was not as positive of a day. She did agree to scheduling a support meeting with a friend for tomorrow. Pt was seen today to assess progress since admission. Pt states "I don't know...this morning I had a breakdown, sort of." Pt shares that she was dealing with a lot of anxiety related to "what to do with my classes. But I calmed down throughout the day." Pt shares that she had not intended on going to community meeting this morning due to the "breakdown", but states "it was actually during that meeting that I heard some pretty good things from staff. Then I went to group therapy which was also really helpful." Pt states that she shared with the group that "I don't want to be alive", and "I got some really good fee dback." Pt shares that many of the individuals in the milieu are much older than her - "and they were all so worried, like 'honey, you're so young'." Pt shares that she does not think she would have been able to work through her breakdown without the support of this setting, but is happy she was able to put some thought into this. Currently, she is planning to reduce her course load to 2 classes. Pt perceives addressing this stress as a positive thing, stating "I felt like it was something I needed to deal with to get my life back on track. Normally I would have just avoided thinking about it an not cared." We also discussed that she had several opportunities today to continue the "I don't care" mentality, but fought it. We discussed that those times of her saying "yes" to groups and pushing herself beyond her motivation level allowed her to turn a "breakdown" into a positive day. Pt reported surprise to hear it mentioned in this way, but did view that as a positive thing for pushing beyond her motivation outside of the hospital as well. She has a support meeting scheduled with a friend for tomorrow, hoping it will go well as "he has struggled with some of the same things as me. One day he just decided to turn his life around 'I'm going to eat 3 meals a day, I'm going to quit smoking pot, I'm going to quit drinking'. I know it won't happen that quick for me, but I think he can help me get there." Pt admits to SI in the setting of her breakdown this morning, but states "it wasn't as severe as it was before I came in." Pt denied other needs or concerns today. Physical Exam Psychiatric Orientation: alert, oriented x 3 and cooperative Apperance: appropriately dressed (casually dressed, wearing patterned flowing pants and an oversized sweater), appropriately groomed and appeared stated age Eye Contact: + fair eye contact Motor Behavior: steady gait and station and no abnormal motor movements Speech: normal rate/rhythm/volume of speech Affect: + blunted affect Mood: + depressed mood (but has noticed improvement throughout the day) Thought Process: goal directed thought process Thought Content: + cognitive distortions and + hopelessness (but feels this is improving today) Suicidal Thoughts: + reports suicidal thoughts (but states thoughts are less severe) Homicidal Thoughts: denies homicidal thoughts Hallucinations: no auditory hallucinations and no visual hallucinations Cognition: attention grossly intact and language grossly intact Estimated Intelligence: consistent with education level Insight: + fair insight Judgement: + fair judgement Vital Signs (Past 24 Hours) Last Vital Signs Temp 36.6 C 08/21/20 06:00 Pulse 56 L 08/21/20 06:00 Resp 16 08/21/20 06:00 BP 105/71 08/21/20 06:00 Pulse Ox 97 08/17/20 23:15 Results & Data ([facility]) Current Inpatient Medications Current Inpatient Medications: Current Inpatient Medications Acetaminophen (Acetaminophen 325 Mg Tab) 650 mg PO Q4H PRN PRN Reason: Headache or Minor Fever Stop: 09/16/20 22:44 Al Hydrox/Mg Hydrox/Simethicone (Aluminum/Magnesium Susp 30 Ml Udc) 30 ml PO Q4H PRN PRN Reason: GI Upset Stop: 09/16/20 22:44 Aripiprazole (Aripiprazole 5 Mg Tab) 2.5 mg PO QAM LOLI Stop: 09/17/20 13:39 Last Admin: 08/21/20 08:23 Dose: 2.5 mg Documented by: Bismuth Subsalicylate (Bismuth Subsalicylate Liqd 236 Ml) 15 ml PO PRN PRN PRN Reason: Loose Stool Stop: 09/16/20 22:44 Hydroxyzine HCl (Hydroxyzine Hcl 25 Mg Tab) 50 mg PO HSZ PRN PRN Reason: Insomnia Stop: 09/16/20 22:44 Hydroxyzine HCl (Hydroxyzine Hcl 25 Mg Tab) 25 mg PO Q4H PRN PRN Reason: Anxiety Stop: 09/16/20 22:44 Lamotrigine (Lamotrigine 25 Mg Tab) 25 mg PO QAM LOLI Stop: 09/17/20 08:59 Last Admin: 08/21/20 08:24 Dose: 25 mg Documented by: Magnesium Hydroxide (Magnesium Hydroxide Susp 30 Ml Udc) 30 ml PO DAILY PRN PRN Reason: Constipation Stop: 09/16/20 22:44 Sodium Chloride (Sodium Chloride 0.65% Na Soln 45 Ml ([place])) 1 - 2 sprays NA PRN PRN PRN Reason: Nasal Dryness/Congestion Stop: 09/16/20 22:44 Mental Health & Subst Abuse Tx Psychiatrist Name of Psychiatrist: Jasen Whatley Psychiatrist's Date of Appointment with Psychiatrist: 09/02/20 Time of Appointment with Psychiatrist: 1:20 p.m. Psychiatric Appointment Comment: [address] [place] [address] [facility]rap[facility] Therap[facility]'s Date of Therapist Appointment: 08/26/20 Time of Therapist Appointment: 9:00 a.m. Therapy Appointment Comment: Telehealth Sap Bobj Developer Name of Sap Bobj Developer: [facility] - Carmen Phone Number for Sap Bobj Developer: [phone] Date of Appointment with Sap Bobj Developer: 08/22/20 Time of Appointment with Sap Bobj Developer: 1:30 p.m. Case Management Appointment Comment: Carmen will call you Post Discharge Appointments Primary Care Physician Name Of Family Doctor: [facility] Primary Care Time of Appointment with PCP: Follow up as needed Provider Appointment Comment: [facility] Contact Information Discharge Discharge Address: [place] [address]
[2020-08-22] MEDS: ARIPiprazole 5 MG TAB PO SCH (08:06)
[2020-08-22] MEDS: lamoTRIgine 25 MG TAB PO SCH (08:07)
--- NOTE | 2020-08-22 12:00 | Discharge Summary ---
Date of Service August 22, 2020 History of Present Illness Patient reports "i haven't been doing anything" including taking her medication. She is behind in classes and may have to withdraw. She has been using MJ and alcohol, "more than usual and not just when I'm having fun". She reports any suicidal thoughts are chronic, but more persistent for few days up to admission. Suicidal plan included wrecking her car or walking in front of a care. She had just seen outpatient provider on 08/15 to resume Lamictal but "I know that's not going to work for awhile". 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 Sleep and appetite "haven't been great" and "I can't focus" even with addition of Adderall XR in escalating doses to 15 mg "so I stopped it too." "July is just a bad month for me" and historically she was hospitalized at in July 2018. At that point she was a sophomore and experiencing low mood alternating with periods of not needing sleep, more reckless behavior. Eda states that "antidepressants have never helped". She worries she is becoming too dependent on friends as she has asked someone to stay with her "constantly" for past few weeks so "I wouldn't do anything." Physical Exam Psychiatric Orientation: alert, oriented x 3 and cooperative Apperance: appropriately dressed, appropriately groomed and appeared stated age Eye Contact: good eye contact Motor Behavior: steady gait and station Speech: normal rate/rhythm/volume of speech Affect: euthymic affect "Better." Thought Process: goal directed thought process, linear/logical thought process and clear/coherent thought process Thought Content: reality based without delusions Suicidal Thoughts: denies suicidal thoughts Future oriented. Conversant with community safety plan. Homicidal Thoughts: denies homicidal thoughts Hallucinations: no auditory hallucinations, no visual hallucinations and no tactile hallucinations Cognition: recent memory grossly intact, remote memory grossly intact and language grossly intact; + attention not intact Estimated Intelligence: + above average estimated intelligence Insight: + fair insight States, "maybe I can still drink like 2 nights a week, rather than most nights." Judgement: + fair judgement Vital Signs (Past 24 Hours) Last Vital Signs Temp 36.6 C 08/22/20 06:00 Pulse 86 08/22/20 06:37 Resp 16 08/22/20 06:00 BP 110/80 08/22/20 06:37 Pulse Ox 97 08/17/20 23:15 Principal Diagnosis Unspecified bipolar disorder Psychiatric Data During the course of hospitalization the patient was offered various modalities of psychiatric treatment and education. These included individual, group, recreational, and psychiatric chemotherapy. The patient that it be known that she intended to use the current hospitalization more effectively than she had when admitted several years ago and that she wants to try to be more honest and forthcoming about her problems and the issues that may be contributing to those problems. She freely acknowledges that she has been drinking far too much. She explains that, like many college students, she drinks heavily every , Tuesday, and Tuesday nights. But she says that unlike most college student she almost universally drinks to the point of passing out. She also acknowledges that she finds excuses to drink on other nights of the week, and may drink to the point of blacking out on other nights. The patient clearly recognized her drinking as a problem and understands that alcohol is a depressant that can worsen mood disorders and interfere with psychiatric treatment. However, she would make statements such as, "yes, I have to find better ways of coping besides drinking," followed shortly thereafter by, "I am thinking maybe I can just drink 1 or 2 nights a week and it will be okay." She does acknowledge that once she starts drinking it is hard for her to stop, and she also says that she cannot tell the dividing line between feeling that she is not that impaired and blacking out. She the patient does agree to actively participate in a dual diagnosis chemical dependency and psychiatry program as part of her outpatient continue treatment. The patient seems to be more adamant in her decision to not use marijuana, and says that she believes that the use of hydroxyzine here in the hospital has allowed her to sleep "normally" without relying on marijuana. Further, the patient recognizes that nonadherence with her outpatient medications prior to admission certainly contributed to what she refers to as a "downhill spiral." She reiterates that she did not have suicidal intent at the time of admission, but notes that she does have a history of superficial self cutting/self-injurious behaviors that she has used as a coping strategy. During the hospital stay she also worked on developing improved individual coping strategies. Further, the patient worked to develop a coping plan and community safety plan. At discharge, the patient was conversant with this plan and was able to identify warning signs, triggers, things that she could do alone to help herself, things that she could do with her friends to help her self, and steps to take in emergency, such as the development of suicidal ideation with plan or intent. Patient indicates that she feels that she is tolerating her medications well. She was started back on lamotrigine prior to admission at a dose of 25 mg a day and understands that she will need to titrate this medication, gradually, following discharge. Material risks, including but not limited to Caicedo- Miguel syndrome were reviewed with the patient. The patient indicates awareness, and says that she does monitor herself for the development of rashes and knows what the steps she should take should a rash develop. Also, the patient understands that she is taking aripiprazole and is aware of the material risks as well as the anticipated benefits. Her understanding is that aripiprazole in her case is being used as a mood stabilizing "bridge" until her lamotrigine level can be brought back up to a therapeutic dose. The treatment team met today and is in agreement that the patient has received maximum benefit from inpatient psychiatric hospitalization. Her passive thoughts of suicide have resolved, and she reports that her mood has improved substantially. She has learned new coping strategies, and the patient is now future oriented and is fully conversant with her community safety plan. Currently, the treatment team and the patient are in agreement that she may now safely be returned to the community with a plan to continue treatment on an outpatient basis. Day of Discharge Assessment On the day of discharge, the patient was found to be pleasant and fully cooperative with the discharge assessment. She was appropriately dressed and groomed and maintained good eye contact with the undersigned. Her speech was perhaps slightly soft and melting, but delivered at a normal rate and rhythm and was fully spontaneous. She described her mood as "better" and "a lot better," and her affect was observed as being bright and cheerful. The patient's thought processes demonstrated tight associations. Her thought content was devoid of any psychotic features. She freely discussed those factors that she felt had contributed to her recent decompensation, including nonadherence with medications, excessive use of alcohol, and excessive use of marijuana. The patient convincingly reports that she is not having any thoughts of suicide and does not have any passive thoughts. She is future oriented, describes her plan for completing the semester at school, albeit as a "part-time student." She also says that she has had preliminary discussions with her professors and that she has been given feedback that they are eager to be able to work with her around her clinical needs as well as her academic needs. The patient describes a solid support network and has included them in her community safety plan. There is no evidence of any perceptual disturbances. Her insight and judgment would be assessed as good, except for the fact that even at discharge she entertained the idea that she "might" be able to drink "maybe once or twice" a week as long as she "limits [the amounts]," even though she also acknowledges that when she starts drinking she has trouble stopping prior to blackout. Similarly, she says that she "thinks" that she can avoid use of marijuana because she has found that Vistaril (hydroxyzine) is effective in sleep induction and seems to work better than marijuana for sleep maintenance. The patient convincingly denies suicidal ideation. She does note that she has a history of superficial self cutting to relieve stress and anxiety, but reports that she does not have any intent to act on persistent impulses in this direction when under stress. Instead, she says that she plans to execute her safety plan which includes activities that she can do alone for stress management, as well as activities that she can do with friends. She notes that she particularly likes getting together with friends and "cooking." She laughs when she says, "I am not a very good cook, but I like cookingmostly because my friends are good cooks and I definitely like to eat!" There are no report thoughts of causing physical harm to the person or property others. The patient's intelligence is estimated to be above average. Transition of Care Transition Of Care Record: was reviewed with the patient Advance Directives Advance Directives Information Provided: Yes Advance Directives: No Mental Health Advance Directive: No Advance Directives on File: No Living Will: No Power of Junior Qa Analyst: No Advance Directives Reason:: Declines as Mental Health Visit. Risk Factors Assessment Male: No : Yes Do You Have Access To A Gun?: No Health Problems: No Mental Health Diagnoses: Yes Substance Use Disorders: Yes Previous Attempt: No (History of intentional self-injurious behaviors during high school. No cur) Family History of Suicide: No Previous Psychiatric Hospitalization: Yes Hopelessness: Yes Smoker: No Protective Factors Assessment Anabaptist Beliefs: No : No Responsible for Young Children: No Employed: No Stable Relationships: Yes Supportive Family: Yes Good Rapport with Provider: Yes Absence of Any Risk Factors Above: No Tobacco Cessation at Discharge Tobacco Cessation Medication Prescribed at Discharge: Not Applicable/Non-Smoker Antipsychotic Medications Aripiprazole is being prescribed as a mood stabilizer, given the patient's diagnosis of bipolar disorder. Total Time Total Time Spent: Greater Than 30 Minutes Total Time Includes: Examination of the patient, Discharge Planning, Medication Reconciliation and Communication with other providers Discharge Data Lab Results 08/17/20 08/17/20 08/17/20 18:19 18:19 18:19 WBC RBC Hgb Hct MCV MCH MCHC RDW Std Deviation RDW Coeff of Elisha Plt Count MPV Immature Gran % (Auto) Neut % (Auto) Lymph % (Auto) Millard % (Auto) Eos % (Auto) Baso % (Auto) Neut # (Auto) Lymph # (Auto) Millard # (Auto) Eos # (Auto) Baso # (Auto) Immature Gran # (Auto) Sodium Potassium Chloride Carbon Dioxide Anion Gap BUN Creatinine Est Cr Clr Drug Dosing Est GFR ( Amer) Est GFR (Non-Af Amer) BUN/Creatinine Ratio Glucose Fasting Glucose Calcium Total Bilirubin AST ALT Alkaline Phosphatase Total Protein Albumin Globulin Albumin/Globulin Ratio Triglycerides Cholesterol LDL Cholesterol, Calc VLDL Cholesterol, Calc HDL Cholesterol Cholesterol/HDL Ratio TSH Urine Color Dark Yellow Urine Appearance Cloudy A Urine pH 6.0 Ur Specific [place] 1.033 H Urine Protein Negative Urine Glucose (UA) Negative Urine Ketones Trace H Urine Blood Negative Urine Nitrite Negative Urine Bilirubin Negative Urine Urobilinogen Negative Ur Leukocyte Esterase Trace H Urine WBC (Auto) 10-30 H Urine RBC (Auto) 0-4 U Hyaline Cast (Auto) 0 U Epithel Cells (Auto) >30 H Urine Bacteria (Auto) 1+ H Urine Crystals Calcium Oxalate A Calcium Oxalate Crystal Present A POC Ur Test Salicylates Urine Opiates Screen Pos H U Codeine Confrm GC/MS NEGATIVE Ur Morphine (GC/MS) 665 H Ur Hydrocodone (GC/MS) NEGATIVE Ur Norhydrocodone NEGATIVE Ur Noroxycodone NEGATIVE Urine Oxycodone (GC/MS) NEGATIVE U Oxymorphone GC/MS NEGATIVE Ur Methadone, Qual Neg Ur Hydromorphone (GC/MS) NEGATIVE Acetaminophen Urine Barbiturates Neg Ur Phencyclidine (PCP) Neg U Amphetamines Confirm 1870 H U Amphetamin/Meth Scrn Pos H U Methamphetamin Confrm NEGATIVE MDMA (Ecstasy) Screen Neg U Benzodiazepines Scrn Neg Ur Cocaine Metabolite Neg U Marijuana (THC) Screen Pos H U Marijuana THC Carboxy 2910 H Drug Screen Comment SEE NOTE Ethyl Alcohol mg/dL SARS-CoV-2, RNA, NAAT 08/17/20 08/17/20 08/17/20 19:14 19:14 19:14 WBC 7.19 RBC 3.96 L Hgb 12.4 Hct 37.7 MCV 95.2 MCH 31.3 MCHC 32.9 RDW Std Deviation 47.8 H RDW Coeff of Elisha 13.7 Plt Count 214 MPV 11.2 H Immature Gran % (Auto) 0.1 Neut % (Auto) 50.6 Lymph % (Auto) 37.4 Millard % (Auto) 7.6 Eos % (Auto) 3.9 Baso % (Auto) 0.4 Neut # (Auto) 3.63 Lymph # (Auto) 2.69 Millard # (Auto) 0.55 Eos # (Auto) 0.28 Baso # (Auto) 0.03 Immature Gran # (Auto) 0.01 Sodium 143 Potassium 3.6 Chloride 108 H Carbon Dioxide 28 Anion Gap 7.0 BUN 14 Creatinine 0.88 Est Cr Clr Drug Dosing 91.7 Est GFR ( Amer) 108.1 Est GFR (Non-Af Amer) 93.3 BUN/Creatinine Ratio 16.3 Glucose 83 Fasting Glucose Calcium 8.8 Total Bilirubin 0.5 AST 22 ALT 18 Alkaline Phosphatase 64 Total Protein 6.6 Albumin 3.6 Globulin 3.0 Albumin/Globulin Ratio 1.2 Triglycerides Cholesterol LDL Cholesterol, Calc VLDL Cholesterol, Calc HDL Cholesterol Cholesterol/HDL Ratio TSH 0.869 Urine Color Urine Appearance Urine pH Ur Specific [place] Urine Protein Urine Glucose (UA) Urine Ketones Urine Blood Urine Nitrite Urine Bilirubin Urine Urobilinogen Ur Leukocyte Esterase Urine WBC (Auto) Urine RBC (Auto) U Hyaline Cast (Auto) U Epithel Cells (Auto) Urine Bacteria (Auto) Urine Crystals Calcium Oxalate Crystal POC Ur Test Salicylates < 1.7 L Urine Opiates Screen U Codeine Confrm GC/MS Ur Morphine (GC/MS) Ur Hydrocodone (GC/MS) Ur Norhydrocodone Ur Noroxycodone Urine Oxycodone (GC/MS) U Oxymorphone GC/MS Ur Methadone, Qual Ur Hydromorphone (GC/MS) Acetaminophen < 2 L Urine Barbiturates Ur Phencyclidine (PCP) U Amphetamines Confirm U Amphetamin/Meth Scrn U Methamphetamin Confrm MDMA (Ecstasy) Screen U Benzodiazepines Scrn Ur Cocaine Metabolite U Marijuana (THC) Screen U Marijuana THC Carboxy Drug Screen Comment Ethyl Alcohol mg/dL SARS-CoV-2, RNA, NAAT 08/17/20 08/17/20 08/17/20 19:14 20:25 Unknown WBC RBC Hgb Hct MCV MCH MCHC RDW Std Deviation RDW Coeff of Elisha Plt Count MPV Immature Gran % (Auto) Neut % (Auto) Lymph % (Auto) Millard % (Auto) Eos % (Auto) Baso % (Auto) Neut # (Auto) Lymph # (Auto) Millard # (Auto) Eos # (Auto) Baso # (Auto) Immature Gran # (Auto) Sodium Potassium Chloride Carbon Dioxide Anion Gap BUN Creatinine Est Cr Clr Drug Dosing Est GFR ( Amer) Est GFR (Non-Af Amer) BUN/Creatinine Ratio Glucose Fasting Glucose Calcium Total Bilirubin AST ALT Alkaline Phosphatase Total Protein Albumin Globulin Albumin/Globulin Ratio Triglycerides Cholesterol LDL Cholesterol, Calc VLDL Cholesterol, Calc HDL Cholesterol Cholesterol/HDL Ratio TSH Urine Color Urine Appearance Urine pH Ur Specific [place] Urine Protein Urine Glucose (UA) Urine Ketones Urine Blood Urine Nitrite Urine Bilirubin Urine Urobilinogen Ur Leukocyte Esterase Urine WBC (Auto) Urine RBC (Auto) U Hyaline Cast (Auto) U Epithel Cells (Auto) Urine Bacteria (Auto) Urine Crystals Calcium Oxalate Crystal POC Ur Test NEG Salicylates Urine Opiates Screen U Codeine Confrm GC/MS Ur Morphine (GC/MS) Ur Hydrocodone (GC/MS) Ur Norhydrocodone Ur Noroxycodone Urine Oxycodone (GC/MS) U Oxymorphone GC/MS Ur Methadone, Qual Ur Hydromorphone (GC/MS) Acetaminophen Urine Barbiturates Ur Phencyclidine (PCP) U Amphetamines Confirm U Amphetamin/Meth Scrn U Methamphetamin Confrm MDMA (Ecstasy) Screen U Benzodiazepines Scrn Ur Cocaine Metabolite U Marijuana (THC) Screen U Marijuana THC Carboxy Drug Screen Comment Ethyl Alcohol mg/dL < 3.0 SARS-CoV-2, RNA, NAAT NEGATIVE 08/19/20 08:06 WBC RBC Hgb Hct MCV MCH MCHC RDW Std Deviation RDW Coeff of Elisha Plt Count MPV Immature Gran % (Auto) Neut % (Auto) Lymph % (Auto) Millard % (Auto) Eos % (Auto) Baso % (Auto) Neut # (Auto) Lymph # (Auto) Millard # (Auto) Eos # (Auto) Baso # (Auto) Immature Gran # (Auto) Sodium Potassium Chloride Carbon Dioxide Anion Gap BUN Creatinine Est Cr Clr Drug Dosing Est GFR ( Amer) Est GFR (Non-Af Amer) BUN/Creatinine Ratio Glucose Fasting Glucose 92 Calcium Total Bilirubin AST ALT Alkaline Phosphatase Total Protein Albumin Globulin Albumin/Globulin Ratio Triglycerides 87 Cholesterol 134 LDL Cholesterol, Calc 68 VLDL Cholesterol, Calc 17 HDL Cholesterol 49 Cholesterol/HDL Ratio 3 TSH Urine Color Urine Appearance Urine pH Ur Specific [place] Urine Protein Urine Glucose (UA) Urine Ketones Urine Blood Urine Nitrite Urine Bilirubin Urine Urobilinogen Ur Leukocyte Esterase Urine WBC (Auto) Urine RBC (Auto) U Hyaline Cast (Auto) U Epithel Cells (Auto) Urine Bacteria (Auto) Urine Crystals Calcium Oxalate Crystal POC Ur Test Salicylates Urine Opiates Screen U Codeine Confrm GC/MS Ur Morphine (GC/MS) Ur Hydrocodone (GC/MS) Ur Norhydrocodone Ur Noroxycodone Urine Oxycodone (GC/MS) U Oxymorphone GC/MS Ur Methadone, Qual Ur Hydromorphone (GC/MS) Acetaminophen Urine Barbiturates Ur Phencyclidine (PCP) U Amphetamines Confirm U Amphetamin/Meth Scrn U Methamphetamin Confrm MDMA (Ecstasy) Screen U Benzodiazepines Scrn Ur Cocaine Metabolite U Marijuana (THC) Screen U Marijuana THC Carboxy Drug Screen Comment Ethyl Alcohol mg/dL SARS-CoV-2, RNA, NAAT Hospital Course (1) Bipolar II disorder with seasonal pattern: 08/18 - The patient was admitted to the [facility] ([facility]) on q15 min checks (behavioral with suicide precautions) for safety. The patient will participate in group, recreational, and milieu therapies and will be offered additional individual and family sessions as clinically appropriate. Risks/benefits/alternatives reviewed re: Abilify for treatment of depression and mood stabilization until therapeutic on Lamictal. She is well aware of risk of Zev's Miguel reaction with Lamictal. Discussion around Abilify included but was not limited to risks of metabolic abnormalities and TD. Fasting metabolic labs in am. 08/19 -continue lamotrigine titration (25 mg daily started 08/15, so can increase to 50 mg daily on 08/28/2020). Continue aripiprazole 2.5 mg daily. Reviewed fasting lab results with patient, all values within normal limits. -Reviewed outpatient records, and discussed case with her outpatient PA to coordinate care. -Referred to [facility] for dual diagnosis therapy. 08/20 - Continue current medication regimen with standard titration of lamotrigine as outlined above. - Reports some improvement in mood overall, but admits she is worried that "nothing will have changed" - Pt admits that active SI is improved, but she still feels as though there is "no point" - still referencing having poor motivation as she does not imagine being around to live much more of her life. Pt admits she does not feel she would be ready for discharge for a few more days, as she does not feel she could contract for safety based on how she is currently feeling. - Discussed behavioral activation, encouraging her to work on adjustments to her schedule/routine that might help with motivation, and other similar topics. 08/21 - Continue current treatment plan as above - Pt seeing some positive changes with regard to motivation. - Support meeting tomorrow with friend, whom the patient views as a positive influence with regard to addressing mental health and substance abuse concerns. - She continues to have some SI, but states it is not as severe as when she initially presented. 08/22 -Patient's meeting with her friend went well and the patient says that she now feels fully prepared for community reentry. She describes her self is feeling optimistic, but also "realistic." -She reports that she is no longer experiencing any thoughts of suicide, and also is not experiencing any passive thoughts of or wish. -The patient does note that there is a history of self-injurious behavior during high school. She says that she does sometimes worry that she will relapse and engage in superficial self cutting when under stress, and notes that she plans to use her coping strategies, particularly ones that are outlined in her immunity safety plan, to manage stress and anxiety without SIB. (2) Substance abuse, binge pattern: 08/18 - patient is actively suicidal and not able to engage in meaningful recovery discussion at this time. I do believe likely mood driven use and likely to decrease with resuming mood stabilizing medication. she denies use of opiates, ?lamictal false positive--quantitative pending. 08/19 - Follow up on UDS confirmatory results, still pending. 08/20 - Opiate confirmatory screening positive for morphine - patient remains adamant that she did not knowingly consume heroin, morphine, codeine, etc. - Reviewed the significant risks associated with substance use, as well as negative impact it is likely having on her mood and concentration. - [facility] for dual diagnosis therapy as mentioned above 08/22 -The patient has been able to admit that her abuse of chemical substances, primarily alcohol and marijuana, or use more than in a "binge pattern," and, instead, she acknowledges that, for the most part, she drinks and uses marijuana on nearly a daily basisalthough she uses more on , Fridays, and Saturdays when "partying" with friends. -As above, she insists that she never knowingly consumed any opioid-based preparation. (3) Attention deficit disorder of adult: reviewed that will not prescribe Adderall XR here as depression is focus of treatment. She does report dx was based on neuropsych testing and [facility] for [facility] to obtain records. 08/19 - Reviewed outpatient records which indicate Adderall was discontinued last week as patient reported it wasn't helping and she'd stopped it. 08/20 - Reviewed with patient that recommendation from outpatient provider had been for discontinuation of Adderall - informed this will be our discharge recommendation as well. 08/22 -The patient does describe symptoms of ADHD and says that Adderall at 15 mg a d ay was partially effective than helping her to concentrate and focus more clearly. She is aware that difficulty concentrating and focusing are features that are also associated with depression. However, she notes that she has had trouble in this direction independent of her mood. -Given the patient diagnosis of bipolar disorder, Adderall and other stimulant medications would typically not be prescribed, at least not until the patient has been fully stabilized on a therapeutic dose of a mood stabilizer. Our advice would be to reassess the need for Adderall once it has been established that the patient is maintaining sustained abstinence from mood altering chemical substances and his adequately treated for her mood disorder symptoms. Mental Health & Subst Abuse Tx Psychiatrist Name of Psychiatrist: Jasen [facility] Psychiatrist's Date of Appointment with Psychiatrist: 09/02/20 Time of Appointment with Psychiatrist: 1:20 p.m. Psychiatric Appointment Comment: [id number] [facility] Therapist Name of Therapist: [facility] Date of Therapist Appointment: 08/26/20 Time of Therapist Appointment: 9:00 a.m. Therapy Appointment Comment: Telehealth Robot Designer Name of Robot Designer: [facility] Phone Number for Robot Designer: [phone] Date of Appointment with Robot Designer: 08/28/20 Time of Appointment with Robot Designer: 1:00 p.m. Case Management Appointment Comment: Pat will call you Post Discharge Appointments Primary Care Physician Name Of Family Doctor: [facility] Primary Care Time of Appointment with PCP: Follow up as needed Provider Appointment Comment: [facility] Smoking Cessation Counseling Tobacco Cessation Medication Prescribed at Discharge: Not Applicable/Non-Smoker Contact Information Discharge Discharge Address: [place] [address] Discharge Plan Discharge Items Patient Disposition: Home - Self-Care Reason For Visit: BIPOLAR DISORDER Discharge Diagnosis: Bipolar Disorder Activity: Resume your previous activity Non-emergency contact: Psychiatrist and Therapist Call non-emergency contact if: you have any medication questions and your symptoms worsen Follow-up/Referrals: [facility] [Primary Care Provider] - Diet: Regular Addtl Attending Provider Instructions: SPECIAL CARE INSTRUCTIONS: 1. Follow through with your scheduled aftercare appointments. If unable to keep an appointment, please call to reschedule. 2. Take your medication only as prescribed. Medication should not be changed or stopped without the approval of your doctor. In the event of worsening symptoms or concerns about side effects, contact your doctor immediately. 3. Utilize new healthy coping skills, anger management skills, and stress management skills learned during your hospitalization. Journal feelings and process them with a support person. Identify stressors or situations that may result in relapse, deterioration or inappropriate behaviors and develop a plan to deal with those issues. 4. If your coping skills are ineffective and you are in crisis, contact your outpatient providers for direction. If unable to reach your providers, please call the [facility] CRISIS LINE AT , go to the [facility] walk-in center at [address], [address], [place], or go to the closest Emergency Room. 5. Avoid alcohol and un-prescribed drugs. 6. You have been provided with the Mental Health Advance Directives Pamphlet for your review. AFTERCARE APPOINTMENTS: * Please call your insurance company prior to your scheduled appointment to confirm your aftercare providers are covered. Take your insurance information to your appointments. WHO TO CALL AND WHEN: Medical Emergencies: For questions or emergencies related to your hospital stay, please contact the Inpatient Behavioral Health Unit at [phone]. A cutting tool sharpener is on-call 20/12 for the Behavioral Health Unit for emergencies At any time you feel your situation is an emergency, you may also call 911 immediately. Pending Studies at Discharge: No Stand-Alone Forms: [facility], Smoking Cessation Medications and DC Order Prescriptions: New aripiprazole 5 mg tablet 2.5 mg PO DAILY Qty: 14 RF: 0 hydroxyzine HCl 25 mg tablet 50 mg PO HS PRN (Reason: sleep) Qty: 30 RF: 1 Continued lamotrigine 25 mg tablet 25 mg PO DAILY RF: 0 Discharge Orders: Discharge Order (Routine); Ordered 08/22/20 Ordered By: Adalberto Pitts Admission Data Admit Date/Time: 08/17/20 22:48 Attending Provider: Lorraine Ely Admit Provider: Lorraine Ely Primary Care Provider: [facility] Other Interventions: PSY Interdisciplinary Discharge Planning Last Done: 08/22/20 11:10 Coding [place] [address] D/C day mgmt > 30 min Patient Type Established History Expanded Problem Focused Exam Expanded Problem Focused Medical Decision Making Moderate Complexity Diagnoses Bipolar II disorder with seasonal pattern F31.81 Substance abuse, binge pattern F19.10 Attention deficit disorder of adult F98.8 Time Spent (min) 60
== END 2020-08-22 13:19 | disposition home or self-care (01) | DRG 885 ==
LOC: ED 17:53 → 3S 22:48